=== PATIENT | female | born 1975 | race Two or more races ===

== ENCOUNTER → 2020-04-17 08:00 | Outpatient (CLI) | payer OTHER | END | disposition home or self-care (01) | LOC: LAB 08:00 → ADM 04-18 12:15 → CIR.AMB 04-24 07:00 → EDSTATUS 04-24 12:15 | PROVIDERS: ATTEND Obstetrics & Gynecology Obstetrics | DX: Z20.828 Contact with and (suspected) exposure to other viral communicable diseases (principal); N93.8 Other specified abnormal uterine and vaginal bleeding ==